=== PATIENT | male | born 1955 | race Caucasian/White ===

== ENCOUNTER 2022-10-11 10:29 | Day surgery (SDC) | payer MEDICARE ==
[2022-10-09 11:16] LABS: ALBUMIN 3.4 gm/dL (3.4-4.8); CALCIUM 10.1 mg/dL (8.4-10.2); CREATININE, serum 1.63 mg/dL (0.72-1.25); POTASSIUM 4.9 mmol/L (3.5-4.5)
[~2022-10-11] VITALS: Ht 175.3 cm; Wt 68.6 kg
[~2022-10-11 10:29] MED LIST: CELEBREX 1100 MG/CAP PO; GLUCOPHAGE XR500 M1 PO; GLUCOTROL XL5 MG/TAB PO; NESINA25 PO; RT ADVAIR 228 DISKUS IH; ZOCOR 20MG20 MG PO
[2022-10-11 12:02] LABS: ALBUMIN 3.2 gm/dL (3.4-4.8); CALCIUM 9.5 mg/dL (8.4-10.2); CREATININE, serum 1.44 mg/dL (0.72-1.25)
[2022-10-11 12:20] LABS: POTASSIUM 4.4 mmol/L (3.5-4.5)
[2022-10-11 12:40] VITALS: BP 110/86; PULSE 104; TEMP 97.9
[2022-10-11 13:11] VITALS: BP 116/70; PULSE 72; TEMP 97.8
[2022-10-11] MEDS ORDERED: NORCO 325 MG-51 TAB PO (13:18)
[2022-10-11] MEDS ORDERED: MOTRIN 600600 MG/TAB PO (13:18)
[2022-10-11 13:26] VITALS: BP 120/61; PULSE 72
[2022-10-11 13:41] VITALS: BP 147/80; PULSE 70
--- NOTE | 2022-10-11 13:49 | NUR ---
LINA and production broacher Alejandrina met with patients family in waiting room about home health and DME preference for tube feeds. Family presented with [email or web address] list of home health agencies. They would like to utilize [facility] for the feedings and [place]. Referral information faxed to the above agencies and phone call made to both. LINA notified ISMAEL Mojica that the MD did not place HH orders in the dc. MD currently in a different procedure at this time.
[2022-10-11 13:56] VITALS: BP 130/72; PULSE 76
[2022-10-11 14:26] VITALS: BP 124/70; PULSE 76
--- NOTE | 2022-10-11 14:58 | NUR ---
1311 RETURNS TO ROOM 6 PER CART. DROWSY, AROUSES EASILY TO VERBAL STIMULI. RESP UNLABORED, O2 AT 6L/NC. VITAL SIGNS OBTAINED. ABD SOFT. DRESSING MID ABD CLEAN DRY AND INTACT. HOB ELEVATED 40 DEGREES. CALL LIGHT AT SIDE. 1325 AND SON IN ROOM. 1340 REQUESTS AND TOLERATES PO WATER. SWALLOWS WITHOUT DIFFICULTY. RESP UNLABORED. O2 OFF. 1355 DOZING, AROUSES EASILY. CONVERSES APPROPRIATELY. 1415 ABD SOFT. DRESSING CLEAN DRY AND INTACT. 1435 DISCHARGE INSTRUCTIONS REVIEWED WITH PATIENT AND SON. INSTRUCTED ON TECHNIQUE AND NEED TO FLUSH PEG TUBE AT 1900 TONIGHT. 1450 PORT RIGHT CHEST FLUSHED, THEN DEACCESSED. PATIENT 1455 SITS ON EDGE OF BED. DRESSES WITH MINIMAL ASSIST FROM .
== END 2022-10-11 15:00 | disposition home or self-care (01) ==
LOC: SDCO 10:29
PROVIDERS: Surgery
DX: C01 Malignant neoplasm of base of tongue (principal); E44.1 Mild protein-calorie malnutrition; F17.210 Nicotine dependence, cigarettes, uncomplicated; Z68.25 Body mass index [BMI] 25.0-25.9, adult
CPT/HCPCS: J0690; J1644; J2704; J7120